=== PATIENT | female | born 1930 | race Caucasian/White ===

== ENCOUNTER → 2019-06-15 | Outpatient (CLI) | payer BC, OTHER | LOC: YHH 13:35 ==

== ENCOUNTER 2019-09-24 14:57 | Inpatient (IN) | payer BC, OTHER ==
--- NOTE | 2019-09-24 15:43 | PDOC ---
History of Present Illness - General Chief Complaint: Chest Pain Stated Complaint: SENT BY PCP/CHEST PAIN Time Seen by Provider: 09/24/19 15:09 - History of Present Illness Initial Comments: Velma Monahan is an 89yo woman who reports a history of SLE who presents stating her PMD (Denis Martins) told her to come to the ED yesterday. She says that she had an appointment in his office, and "he saw how I was." She is unable to say why Dr Mratins wanted to her to come to the hospital. She reports that she "hasn' t been doing well" and has been having difficulty walking around. She also reports that her right shoulder and upper arm hurt today; she has not taken anything for the pain. She reported chest pain in triage but currently denies that she ever had chest pain. Ms Monahan denies any recent fever, chills, nausea/vomiting, difficulty breathing , chest pain, or other symptoms. Past History - Past Medical History Allergies/Adverse Reactions: Allergies Allergy/AdvReac Type Severity Reaction Status Date / Time Penicillins Allergy Verified 09/24/19 16:44 COPD: No - Psycho Social/Smoking Cessation Hx Smoking History: Never smoked Review of Systems - Review of Systems Comments:: General: No fevers, no chills, no weight or appetite change, no malaise HEENT: No changes in vision, no changes in hearing, no congestion, no sore throat CV: No chest pain, no palpitations, no LE edema Pulm: No SOB, no cough, no wheezing GI: No nausea or vomiting, no change in bowel habits, no melena : No frequency, no urgency, no dysuria Musc: No back pain, no joint swelling, no recent injury Skin: No rash, no lesions, no erythema Endo/Rheum: No excessive thirst, no heat/cold intolerance, +h/o SLE Heme: No unusual bruising or bleeding, no swollen glands Neuro: No syncope, no numbness/tingling, no focal weakness Vasc: No claudication Psych: No recent change in mood, no SI or HI *Physical Exam - Vital Signs Last Vital Signs Temp Pulse Resp BP Pulse Ox 97.8 F 92 H 19 154/62 96 09/24/19 15:00 09/24/19 15:00 09/24/19 15:00 09/24/19 15:00 09/24/19 15:00 - Physical Exam General: Comfortable, no acute distress HEENT: PERRL, EOMI, MMM, voice normal, normal neck ROM Cards: RRR, no murmur appreciated Pulm: Comfortable on room air, clear to auscultation bilaterally Abd: Soft, nontender, nondistended Ext: Atraumatic. No LE edema. ROM intact. WWP Skin: Normal color, no rashes or lesions Neuro: A&Ox3, CN grossly intact, normal speech, motor/sensory grossly intact and symmetric Psych: Mood appropriate to situation ED Treatment Course - LABORATORY CBC & Chemistry Diagram: 09/24/19 16:20 09/24/19 16:20 Medical Decision Making - Medical Decision Making 09/24/19 15:42 Velma Monahan is an 89yo woman who reports a history of SLE who presents stating her PMD (Denis Martins) told her to come to the ED yesterday. She reports that she "hasn't been doing well" lately, and her PMD told her to come to the hospital. She reports right shoulder pain currently but denies any chest pain, difficulty breathing, fever/chills or other focal symptoms. - Unclear chief complaint, will attempt to contact Dr Martins for more information - Possible cardiac etiology of generalized weakness and shoulder pain. CBC, CMP , EKG, trop, CXR for initial evaluation - IV acetaminophen for shoulder pain 09/24/19 15:43 - Spoke to Dr Martins. Pt has a history of DM, HTN, CAD s/p stents, PAD s/p angioplasty s/p toe amputations - Seen in the office yesterday for chest pain, lightheadedness - Had full labs yesterday including thyroid, trop. No abnormalities. TFT's normal, BUN/Cr 12/0.83, A1C was 6.7 yesterday. CXR without abnormalities. Echo showed LVH, mitral regurgitation, normal LV function, hypokinetic left inferior wall. Carotid duplex showed plaque bilaterally, left-sided stenosis - Reports pt has difficulty with mobility, is currently living alone. Reports no head or water at her home. Likely needs admit - Home meds include Norvasc 10, ASA81, lantus 30u, trigenta 5, losartan 25, metoprolol 25, crestor 10, lyrica 09/24/19 17:54 - Labs without concerning abnormalities. - Spoke to Dr Balbuena. Will admit to med/surg for additional management. Discussed with Dr Bhavesh Lake PGY2 Discharge - Discharge Information Problems reviewed: Yes Clinical Impression/Diagnosis: Failure to thrive in adult Condition: Stable - Admission Yes - Follow up/Referral - Patient Discharge Instructions - Post Discharge Activity
[2019-09-24] MEDS ORDERED: ACETAMINOPHEN 1000 MG/100 ML VIAL (NON FORMULARY) IVPB ONE (15:53)
[2019-09-24] MEDS ORDERED: ACETAMINOPHEN INJECTION 200 ML IVPB ONE (16:24)
[2019-09-24 17:00] LABS: BASO % 0.4 % (0-2.0); EOS % 1.1 % (0-4.5); HEMATOCRIT 39.7 % (32.4-45.2); HEMOGLOBIN 12.9 GM/dL (10.7-15.3); LYMPH % 18.5 % (8-40); MCH 24.3 pg (25.7-33.7); MCHC 32.5 g/dl (32.0-36.0); MEAN CELL VOLUME 74.8 fl (80-96); MEAN PLT VOLUME 7.7 fl (7.5-11.1); MONO % 7.2 % (3.8-10.2); NEUT % 72.8 % (42.8-82.8); PLATELET COUNT 398 K/MM3 (134-434); RDW 17.9 % (11.6-15.6); WHITE BLOOD COUNT 8.3 K/mm3 (4.0-10.0)
[2019-09-24 17:21] LABS: ALBUMIN 3.5 g/dl (3.4-5.0); BILIRUBIN,TOTAL 0.2 mg/dL (0.2-1); CALCIUM 9.2 mg/dL (8.5-10.1); CREATININE 0.9 mg/dL (0.55-1.3); POTASSIUM 4.1 mmol/L (3.5-5.1); TOT PROT 7.1 g/dl (6.4-8.2)
--- NOTE | 2019-09-24 17:34 | PDOC ---
Attending Attestation - Resident Resident Name: PitoenioFely - ED Attending Attestation I have performed the following: I have examined & evaluated the patient, The case was reviewed & discussed with the resident, I agree w/resident's findings & plan, Exceptions are as noted - HPI HPI: 09/24/19 17:25 89 F with h/o SLE presenting to ED for failure to thrive. Per pt's PMD, Dr. Martins, pt was seen in the office yesterday and was instructed to come to the ED for admission. Pt reportedly lives in an apartment with no heat or water and is unable to take care of herself. - Physicial Exam PE: 09/24/19 17:35 "GENERAL: Awake, alert, and fully oriented, in no acute distress. HEAD: No signs of trauma EYES: PERRLA, EOMI, sclera anicteric, conjunctiva clear ENT: Auricles normal inspection, hearing grossly normal, nares patent, oropharynx clear without exudates. Moist mucosa NECK: Nontender, no stepoffs, Normal ROM, supple, no lymphadenopathy, JVD, or masses LUNGS: Breath sounds equal, clear to auscultation bilaterally. No wheezes, and no crackles HEART: Regular rate and rhythm, normal S1 and S2, no murmurs, rubs or gallops ABDOMEN: Soft, nontender, normoactive bowel sounds. No guarding, no rebound. No masses EXTREMITIES: Normal range of motion, no edema. No clubbing or cyanosis. No cords, erythema, or tenderness NEUROLOGICAL: Cranial nerves II through XII intact. 5/5 strength and sensation in all extremities, Normal speech, normal gait, normal cerebellar function SKIN: Warm, Dry, normal turgor, no rashes or lesions noted. - Medical Decision Making 09/24/19 17:35 89 F sent to ED for unsafe living situation. - Labs - Admit
[2019-09-24] MEDS: DEXTROSE 5%-0.45% SALINE 1,000 ML IV SCH (23:16)
[2019-09-24 23:45] VITALS: BMI 29.2
[2019-09-25] MEDS ORDERED: ACETAMINOPHEN 325 MG TABLET (FP) PO ONE (03:15)
[2019-09-25 09:46] LABS: BASO % 0.6 % (0-2.0); EOS % 3.7 % (0-4.5); HEMATOCRIT 36.4 % (32.4-45.2); HEMOGLOBIN 11.8 GM/dL (10.7-15.3); LYMPH % 31.3 % (8-40); MCH 24.5 pg (25.7-33.7); MCHC 32.4 g/dl (32.0-36.0); MEAN CELL VOLUME 75.7 fl (80-96); NEUT % 54.4 % (42.8-82.8); PLATELET COUNT 338 K/MM3 (134-434); RBC 4.81 M/mm3 (3.60-5.2); RDW 18.1 % (11.6-15.6); WHITE BLOOD COUNT 6.9 K/mm3 (4.0-10.0)
[2019-09-25 09:52] LABS: ALBUMIN 3.1 g/dl (3.4-5.0); BILIRUBIN,TOTAL 0.2 mg/dL (0.2-1); BLOOD UREA NITROGEN 23.3 mg/dL (7-18); CALCIUM 8.6 mg/dL (8.5-10.1); POTASSIUM 4.1 mmol/L (3.5-5.1); TOT PROT 6.2 g/dl (6.4-8.2)
[2019-09-25] MEDS: LOSARTAN POTASSIUM 25 MG TABLET PO SCH (10:23)
[2019-09-25] MEDS: HEPARIN NA (PORCINE) 5,000 UNITS/ML 1ML VIAL SQ SCH ×2 (10:23→21:28)
[2019-09-25] MEDS: ASPIRIN 81 MG CHEWABLE TABLETS PO SCH (10:23)
[2019-09-25] MEDS: amLODIPine BESYLATE 10 MG TABLET (FP) PO SCH (10:23)
[2019-09-25] MEDS: PREGABALIN 25 MG CAPSULE PO SCH (10:23)
--- NOTE | 2019-09-25 12:48 | HP ---
Admitting History and Physical - Smoking History Smoking history: Never smoked - Alcohol/Substance Use Hx Alcohol Use: No Home Medications - Allergies Allergies/Adverse Reactions: Allergies Allergy/AdvReac Type Severity Reaction Status Date / Time Penicillins Allergy Verified 09/24/19 16:44 - Home Medications Home Medications: Ambulatory Orders Amlodipine Besylate [Norvasc -] 10 mg PO DAILY 09/24/19 Aspirin [ASA -] 81 mg PO DAILY 09/24/19 Insulin Glargine,Hum.rec.anlog [Lantus] 30 unit SQ DAILY 09/24/19 Linagliptin [Tradjenta] 5 mg PO DAILY 09/24/19 Losartan Potassium 25 mg PO DAILY 09/24/19 Pregabalin [Lyrica] 25 mg PO DAILY 09/24/19 Rosuvastatin Calcium [Crestor] 10 mg PO HS 09/24/19 Physical Examination Vital Signs: Vital Signs Temperature 97.4 F L 09/25/19 05:52 Pulse Rate 76 09/25/19 05:52 Respiratory Rate 18 09/25/19 05:52 Blood Pressure 146/60 09/25/19 05:52 O2 Sat by Pulse Oximetry (%) 95 09/24/19 21:00 Labs: CBC, BMP 09/25/19 08:10 09/25/19 08:10
[2019-09-25] MEDS: ACETAMINOPHEN 325 MG TABLET (FP) PO PRN (13:44)
[2019-09-25] MEDS: DEXTROSE 5%-0.45% SALINE 1,000 ML IV SCH (17:44)
[2019-09-25] MEDS: ROSUVASTATIN CA 10 MG TABLET (FP) PO SCH (21:28)
[2019-09-25] MEDS: INSULIN (LEVEMIR) 100 UNITS/ML UNITS SQ SCH (21:28)
--- NOTE | 2019-09-25 23:19 | EKG ---
Test Reason : Blood Pressure : / mmHG Vent. Rate : 090 BPM Atrial Rate : 090 BPM P-R Int : 168 ms QRS Dur : 138 ms QT Int : 442 ms P-R-T Axes : 057 109 026 degrees QTc Int : 540 ms NORMAL SINUS RHYTHM POSSIBLE LEFT ATRIAL ENLARGEMENT RIGHT BUNDLE BRANCH BLOCK ABNORMAL ECG WHEN COMPARED WITH ECG OF 03-JUL-2010 02:07, VENT. RATE HAS INCREASED BY 32 BPM Confirmed by RICHI MONTOYA, BARNEY ([id number]) on 09/25/2019 11:18:51 PM Referred By: Confirmed By:BARNEY STODDARD MD
[2019-09-26 00:57] LABS: EPI CELLS 2.7 /HPF (0-5/HPF); HYALINE CASTS 1 /lpf (0-8); PH,URINE 5.5 (5.0-8.0); URINE APPEARANCE CLOUDY; URINE BACTERIA >9000 /hpf (NEGATIVE); URINE BILIRUBIN NEGATIVE (NEGATIVE); URINE COLOR YELLOW; URINE GLUCOSE (UA) NEGATIVE (NEGATIVE); URINE KETONE NEGATIVE (NEGATIVE); URINE LEUK ESTERASE NEGATIVE (NEGATIVE); URINE NITRITE POSITIVE (NEGATIVE); URINE PROTEIN 1+ (NEGATIVE); URINE RBC 2 /hpf (0-4); URINE UROBILINOGEN 0.2 mg/dL (0.2-1.0); URINE WBC 4 /hpf (0-5)
[2019-09-26] MEDS: amLODIPine BESYLATE 10 MG TABLET (FP) PO SCH (09:50)
[2019-09-26] MEDS: PREGABALIN 25 MG CAPSULE PO SCH (09:51)
[2019-09-26] MEDS: HEPARIN NA (PORCINE) 5,000 UNITS/ML 1ML VIAL SQ SCH ×2 (09:51→21:29)
[2019-09-26] MEDS: LOSARTAN POTASSIUM 25 MG TABLET PO SCH (09:51)
[2019-09-26] MEDS: ASPIRIN 81 MG CHEWABLE TABLETS PO SCH (09:51)
[2019-09-26] MEDS: ACETAMINOPHEN 325 MG TABLET (FP) PO PRN (14:54)
--- NOTE | 2019-09-26 18:36 | PN ---
Progress Note, Physician History of Present Illness: pt complains of cough - Current Medication List Current Medications: Active Medications Acetaminophen (Tylenol -) 650 mg PO Q6H PRN PRN Reason: PAIN 1-5 Last Admin: 09/26/19 14:54 Dose: 650 mg Amlodipine Besylate (Norvasc -) 10 mg PO DAILY [facility] Last Admin: 09/26/19 09:50 Dose: 10 mg Aspirin (Asa -) 81 mg PO DAILY [facility] Last Admin: 09/26/19 09:51 Dose: 81 mg Guaifenesin (Robitussin -) 5 ml PO Q6H PRN PRN Reason: COUGH Heparin Sodium (Porcine) (Heparin -) 5,000 unit SQ BID [facility] Last Admin: 09/26/19 09:51 Dose: 5,000 unit Insulin Detemir (Levemir Vial) 20 units SQ HS [facility] Last Admin: 09/25/19 21:28 Dose: 20 units Losartan Potassium (Cozaar -) 25 mg PO DAILY [facility] Last Admin: 09/26/19 09:51 Dose: 25 mg Nystatin (Nystop Powder -) 1 applic TP BID [facility] Pramipexole Dihydrochloride (Mirapex -) 0.125 mg PO HS [facility] Pregabalin (Lyrica -) 25 mg PO DAILY [facility] Last Admin: 09/26/19 09:51 Dose: 25 mg Rosuvastatin Calcium (Crestor -) 10 mg PO HS [facility] Last Admin: 09/25/19 21:28 Dose: 10 mg - Objective Vital Signs: Vital Signs Temperature 97.7 F 09/26/19 14:31 Pulse Rate 85 09/26/19 14:31 Respiratory Rate 18 09/26/19 09:00 Blood Pressure 149/57 L 09/26/19 14:31 O2 Sat by Pulse Oximetry (%) 93 L 09/26/19 09:00 Cardiovascular: Yes: WNL, Regular Rate and Rhythm Respiratory: Yes: WNL, Regular, CTA Bilaterally Gastrointestinal: Yes: WNL, Normal Bowel Sounds, Soft Labs: CBC, BMP 09/25/19 08:10 09/25/19 08:10 Problem List - Problems (1) Cough Assessment/Plan: Cont levaquin Code(s): R05 - COUGH (2) Failure to thrive in adult Assessment/Plan: DC planning to STR Physical therapy Code(s): R62.7 - ADULT FAILURE TO THRIVE (3) HTN (hypertension) Assessment/Plan: BP stable Cont losartan/norvasc/asa Code(s): I10 - ESSENTIAL (PRIMARY) HYPERTENSION (4) HLD (hyperlipidemia) Assessment/Plan: Cont crestor Code(s): E78.5 - HYPERLIPIDEMIA, UNSPECIFIED (5) Peripheral neuropathic pain Assessment/Plan: Cont lyrica Code(s): M79.2 - NEURALGIA AND NEURITIS, UNSPECIFIED (6) Diabetes Assessment/Plan: Cont levemir Code(s): E11.9 - TYPE 2 DIABETES 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
[2019-09-26] MEDS: guaiFENesin 200 MG/10 ML 10 ML UNIT-DOSE CUPS PO PRN (20:20)
[2019-09-26] MEDS: NYSTATIN POWDER 100,000 UNITS/GM - 15 GM TOPICAL POWDER TP SCH (21:29)
[2019-09-26] MEDS: INSULIN (LEVEMIR) 100 UNITS/ML UNITS SQ SCH (21:29)
[2019-09-26] MEDS: PRAMIPEXOLE DIHYDROCHLORIDE 0.125 MG TABLET PO SCH (21:31)
[2019-09-26] MEDS: ROSUVASTATIN CA 10 MG TABLET (FP) PO SCH (21:31)
[2019-09-27] MEDS: HEPARIN NA (PORCINE) 5,000 UNITS/ML 1ML VIAL SQ SCH ×2 (09:51→21:17)
[2019-09-27] MEDS: ASPIRIN 81 MG CHEWABLE TABLETS PO SCH (09:52)
[2019-09-27] MEDS: LOSARTAN POTASSIUM 25 MG TABLET PO SCH (09:52)
[2019-09-27] MEDS: amLODIPine BESYLATE 10 MG TABLET (FP) PO SCH (09:52)
[2019-09-27] MEDS: PREGABALIN 25 MG CAPSULE PO SCH (09:52)
[2019-09-27] MEDS: NYSTATIN POWDER 100,000 UNITS/GM - 15 GM TOPICAL POWDER TP SCH ×2 (09:52→21:21)
--- NOTE | 2019-09-27 13:41 | CON.PULM ---
Consult Consult Specialty:: PULM/CCM Referred by:: [email or web address] Reason for Consultation:: Cough - History of Present Illness Chief Complaint: Cough History of Present Illness: 89 F, known SLE. Apparently admitted via the ED for failure to thrive. She reports no heat or water and is unable to take care of herself. Reports a dry cough for the past several days. No travel history or sick contacts. No fever or chills. No significant smoking history. No previous history of obstructive airway disease. She does report chronic rhinitis and post nasal drip. She does get occasional seasonal allergies. There is no history that would be consistent with OSAS. CXR: No acute process - - History Source History Provided By: Patient Limitations to Obtaining History: No Limitations - Past Medical History Pulmonary: Yes: Bronchitis. No: Asthma, Cancer, COPD, O2 Dependent, Pneumonia, Previously Intubated, Pulmonary Embolus, Pulmonary Fibrosis, Sleep Apnea - Alcohol/Substance Use Hx Alcohol Use: No - Smoking History Smoking history: Never smoked Home Medications - Allergies Allergies/Adverse Reactions: Allergies Allergy/AdvReac Type Severity Reaction Status Date / Time Penicillins Allergy Verified 09/24/19 16:44 - Home Medications Home Medications: Ambulatory Orders Amlodipine Besylate [Norvasc -] 10 mg PO DAILY 09/24/19 Aspirin [ASA -] 81 mg PO DAILY 09/24/19 Insulin Glargine,Hum.rec.anlog [Lantus] 30 unit SQ DAILY 09/24/19 Linagliptin [Tradjenta] 5 mg PO DAILY 09/24/19 Losartan Potassium 25 mg PO DAILY 09/24/19 Pregabalin [Lyrica] 25 mg PO DAILY 09/24/19 Rosuvastatin Calcium [Crestor] 10 mg PO HS 09/24/19 Review of Systems - Review of Systems Constitutional: reports: Malaise. denies: Chills, Fever, Night Sweats, Unintentional Wgt. Loss, Weakness Eyes: reports: No Symptoms HENT: reports: Nasal Congestion, Other (post nasal drip) Neck: reports: No Symptoms Cardiovascular: denies: Chest Pain, Edema, Palpitations, Shortness of Breath Respiratory: reports: Cough. denies: Hemoptysis, Orthopnea, PND, Snoring, SOB, SOB on Exertion, Wheezing Gastrointestinal: reports: No Symptoms Genitourinary: reports: No Symptoms Breasts: reports: No Symptoms Reported Musculoskeletal: reports: No Symptoms Integumentary: reports: No Symptoms Neurological: reports: No Symptoms Endocrine: reports: No Symptoms Hematology/Lymphatic: reports: No Symptoms Psychiatric: reports: No Symptoms Physical Exam Vital Sings: Vital Signs Temperature 98.4 F 09/27/19 07:52 Pulse Rate 73 09/27/19 07:52 Respiratory Rate 14 09/27/19 07:52 Blood Pressure 139/62 09/27/19 07:52 O2 Sat by Pulse Oximetry (%) 95 09/27/19 12:16 Constitutional: Yes: No Distress, Calm Eyes: Yes: Conjunctiva Clear, EOM Intact HENT: Yes: Atraumatic, Normocephalic Neck: Yes: Supple, Trachea Midline Cardiovascular: Yes: Regular Rate and Rhythm Respiratory: Yes: CTA Bilaterally, Cough, On Nasal O2. No: Accessory Muscle Use , Rales, Rhonchi, SOB, SOB on Exertion, Stridor, Tachypnea, Wheezes ...Inspection: Yes: WNL ...Clubbing: No Gastrointestinal: Yes: Normal Bowel Sounds, Soft Renal/: Yes: WNL Musculoskeletal: Yes: WNL Extremities: Yes: WNL Edema: No Peripheral Pulses WNL: Yes Integumentary: Yes: WNL Neurological: Yes: WNL, Alert, Oriented ...Motor Strength: WNL Psychiatric: Yes: WNL, Alert, Oriented Labs: CBC, BMP 09/25/19 08:10 09/25/19 08:10 Imaging - Results Chest X-ray: Report Reviewed, Image Reviewed Problem List - Problems (1) Cough Code(s): R05 - COUGH (2) Diabetes Code(s): E11.9 - TYPE 2 DIABETES 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 (3) Failure to thrive in adult Code(s): R62.7 - ADULT FAILURE TO THRIVE (4) HLD (hyperlipidemia) Code(s): E78.5 - HYPERLIPIDEMIA, UNSPECIFIED (5) HTN (hypertension) Code(s): I10 - ESSENTIAL (PRIMARY) HYPERTENSION (6) Peripheral neuropathic pain Code(s): M79.2 - NEURALGIA AND NEURITIS, UNSPECIFIED (7) Post-nasal drip Code(s): R09.82 - POSTNASAL DRIP Assessment/Plan IMP: Suspect resolving URI with subacute cough due to PND PLAN: Fluticasone nasal spray Nasal saline Noted Levaquin O2 as needed PFTs as an outpatient when stable No smoking counseled Will follow Thank you. Dr Lewis
[2019-09-27] MEDS ORDERED: SODIUM CHLORIDE NASAL SPRAY 44 ML BOTTLE NS PRN (13:49)
[2019-09-27] MEDS ORDERED: PT OWN MED DRAWER 7, Y5N ONE (14:38)
[2019-09-27] MEDS: FLUTICASONE PROP 0.05% 16 GM NASAL SPRAY NS SCH (14:45)
[2019-09-27] MEDS: ROSUVASTATIN CA 10 MG TABLET (FP) PO SCH (21:18)
[2019-09-27] MEDS: PRAMIPEXOLE DIHYDROCHLORIDE 0.125 MG TABLET PO SCH (21:18)
[2019-09-27] MEDS: INSULIN (LEVEMIR) 100 UNITS/ML UNITS SQ SCH (21:18)
[2019-09-27] MEDS: ACETAMINOPHEN 325 MG TABLET (FP) PO PRN (21:28)
--- NOTE | 2019-09-27 22:06 | PN ---
Progress Note, Physician History of Present Illness: pt complains of cough Pt had episode of O2 destauration to 88% - Current Medication List Current Medications: Active Medications Acetaminophen (Tylenol -) 650 mg PO Q6H PRN PRN Reason: PAIN 1-5 Last Admin: 09/27/19 21:28 Dose: 650 mg Amlodipine Besylate (Norvasc -) 10 mg PO DAILY [facility] Last Admin: 09/27/19 09:52 Dose: 10 mg Aspirin (Asa -) 81 mg PO DAILY [facility] Last Admin: 09/27/19 09:52 Dose: 81 mg Fluticasone Propionate (Flonase -) 2 spray NS DAILY [facility] Last Admin: 09/27/19 14:45 Dose: 2 spray Guaifenesin (Robitussin -) 5 ml PO Q6H PRN PRN Reason: COUGH Last Admin: 09/26/19 20:20 Dose: 5 ml Heparin Sodium (Porcine) (Heparin -) 5,000 unit SQ BID [facility] Last Admin: 09/27/19 21:17 Dose: 5,000 unit Insulin Detemir (Levemir Vial) 20 units SQ HS [facility] Last Admin: 09/27/19 21:18 Dose: 20 units Levofloxacin (Levaquin -) 500 mg PO DAILY [facility] Last Admin: 09/27/19 09:52 Dose: 500 mg Losartan Potassium (Cozaar -) 25 mg PO DAILY [facility] Last Admin: 09/27/19 09:52 Dose: 25 mg Nystatin (Nystop Powder -) 1 applic TP BID [facility] Last Admin: 09/27/19 21:21 Dose: 1 applic Pramipexole Dihydrochloride (Mirapex -) 0.125 mg PO HS [facility] Last Admin: 09/27/19 21:18 Dose: 0.125 mg Pregabalin (Lyrica -) 25 mg PO DAILY [facility] Last Admin: 09/27/19 09:52 Dose: 25 mg Rosuvastatin Calcium (Crestor -) 10 mg PO HS [facility] Last Admin: 09/27/19 21:18 Dose: 10 mg Sodium Chloride ([place] Nasal [place] -) 2 spray NS TID PRN PRN Reason: NASAL CONGESTION - Objective Vital Signs: Vital Signs Temperature 97.3 F L 09/27/19 20:03 Pulse Rate 78 09/27/19 20:03 Respiratory Rate 18 09/27/19 21:00 Blood Pressure 157/65 12/09/19 20:03 O2 Sat by Pulse Oximetry (%) 96 09/27/19 21:00 Neck: Yes: WNL, Supple Cardiovascular: Yes: WNL, Regular Rate and Rhythm Respiratory: Yes: WNL, Regular, CTA Bilaterally Gastrointestinal: Yes: WNL, Normal Bowel Sounds, Soft, Abdomen, Obese Edema: No Labs: CBC, BMP 09/25/19 08:10 09/25/19 08:10 Problem List - Problems (1) Cough Assessment/Plan: Cont levaquin CXR did not show any acute pathology Pulmonary consult noted DC to STR in am Code(s): R05 - COUGH (2) Failure to thrive in adult Assessment/Plan: DC planning to STR Physical therapy Code(s): R62.7 - ADULT FAILURE TO THRIVE (3) HTN (hypertension) Assessment/Plan: BP stable Cont losartan/norvasc/asa Code(s): I10 - ESSENTIAL (PRIMARY) HYPERTENSION (4) HLD (hyperlipidemia) Assessment/Plan: Cont crestor Code(s): E78.5 - HYPERLIPIDEMIA, UNSPECIFIED (5) Peripheral neuropathic pain Assessment/Plan: Cont lyrica Code(s): M79.2 - NEURALGIA AND NEURITIS, UNSPECIFIED (6) Diabetes Assessment/Plan: Cont levemir Code(s): E11.9 - TYPE 2 DIABETES 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
[2019-09-28] MEDS ORDERED: PT OWN MED DRAWER 7, Y5N ONE (09:51)
[2019-09-28] MEDS: FLUTICASONE PROP 0.05% 16 GM NASAL SPRAY NS SCH (09:56)
[2019-09-28] MEDS: HEPARIN NA (PORCINE) 5,000 UNITS/ML 1ML VIAL SQ SCH ×2 (09:57→21:08)
[2019-09-28] MEDS: ASPIRIN 81 MG CHEWABLE TABLETS PO SCH (09:57)
[2019-09-28] MEDS: LOSARTAN POTASSIUM 25 MG TABLET PO SCH (09:57)
[2019-09-28] MEDS: amLODIPine BESYLATE 10 MG TABLET (FP) PO SCH (09:57)
[2019-09-28] MEDS: NYSTATIN POWDER 100,000 UNITS/GM - 15 GM TOPICAL POWDER TP SCH ×2 (10:00→21:12)
[2019-09-28] MEDS: PREGABALIN 25 MG CAPSULE PO SCH (10:32)
--- NOTE | 2019-09-28 11:03 | PN ---
Progress Note (short form) - Note Progress Note: OOB to chair. Comfortable on RA. [place] some nausea this AM. Still with nasal congestion, cough with clear sputum. Intake & Output 09/25/19 09/26/19 09/27/19 09/28/19 23:59 23:59 23:59 23:59 Intake Total 2650 2680 1190 270 Balance 2650 2680 1190 270 Weight 160 lb Last Vital Signs Temp Pulse Resp BP Pulse Ox 98.2 F 77 18 146/56 L 96 09/28/19 05:55 09/28/19 10:00 09/28/19 05:55 09/28/19 10:00 09/27/19 21:00 Active Medications Acetaminophen (Tylenol -) 650 mg PO Q6H PRN PRN Reason: PAIN 1-5 Last Admin: 09/27/19 21:28 Dose: 650 mg Amlodipine Besylate (Norvasc -) 10 mg PO DAILY [facility] Last Admin: 09/28/19 09:57 Dose: 10 mg Aspirin (Asa -) 81 mg PO DAILY [facility] Last Admin: 09/28/19 09:57 Dose: 81 mg Fluticasone Propionate (Flonase -) 2 spray NS DAILY [facility] Last Admin: 09/28/19 09:56 Dose: 2 spray Guaifenesin (Robitussin -) 5 ml PO Q6H PRN PRN Reason: COUGH Last Admin: 09/26/19 20:20 Dose: 5 ml Heparin Sodium (Porcine) (Heparin -) 5,000 unit SQ BID [facility] Last Admin: 09/28/19 09:57 Dose: 5,000 unit Insulin Detemir (Levemir Vial) 20 units SQ HS [facility] Last Admin: 09/27/19 21:18 Dose: 20 units Levofloxacin (Levaquin -) 500 mg PO DAILY [facility] Last Admin: 09/28/19 09:57 Dose: 500 mg Losartan Potassium (Cozaar -) 25 mg PO DAILY [facility] Last Admin: 09/28/19 09:57 Dose: 25 mg Nystatin (Nystop Powder -) 1 applic TP BID [facility] Last Admin: 09/28/19 10:00 Dose: 1 applic Pramipexole Dihydrochloride (Mirapex -) 0.125 mg PO HS [facility] Last Admin: 09/27/19 21:18 Dose: 0.125 mg Pregabalin (Lyrica -) 25 mg PO DAILY [facility] Last Admin: 09/28/19 10:32 Dose: 25 mg Rosuvastatin Calcium (Crestor -) 10 mg PO HS [facility] Last Admin: 09/27/19 21:18 Dose: 10 mg Sodium Chloride ([place] Nasal [place] -) 2 spray NS TID PRN PRN Reason: NASAL CONGESTION Constitutional: Yes: No Distress, Mildly anxious Eyes: Yes: Conjunctiva Clear, EOM Intact HENT: Yes: Atraumatic, Normocephalic Neck: Yes: Supple, Trachea Midline Cardiovascular: Yes: Regular Rate and Rhythm Respiratory: Yes: CTA Bilaterally, Cough, On Nasal O2. No: Accessory Muscle Use , Rales, Rhonchi, SOB, SOB on Exertion, Stridor, Tachypnea, Wheezes ...Inspection: Yes: WNL ...Clubbing: No Gastrointestinal: Yes: Normal Bowel Sounds, Soft Renal/: Yes: WNL Musculoskeletal: Yes: WNL Extremities: Yes: WNL Edema: No Peripheral Pulses WNL: Yes Integumentary: Yes: WNL Neurological: Yes: WNL, Alert, Oriented ...Motor Strength: WNL Psychiatric: Yes: WNL, Alert, Oriented Labs: Laboratory Results - last 24 hr 09/27/19 09/28/19 21:14 05:21 POC Glucometer 147 147 Problem List - Problems (1) Cough Code(s): R05 - COUGH (2) Diabetes Code(s): E11.9 - TYPE 2 DIABETES 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 (3) Failure to thrive in adult Code(s): R62.7 - ADULT FAILURE TO THRIVE (4) HLD (hyperlipidemia) Code(s): E78.5 - HYPERLIPIDEMIA, UNSPECIFIED (5) HTN (hypertension) Code(s): I10 - ESSENTIAL (PRIMARY) HYPERTENSION (6) Peripheral neuropathic pain Code(s): M79.2 - NEURALGIA AND NEURITIS, UNSPECIFIED (7) Post-nasal drip Code(s): R09.82 - POSTNASAL DRIP Assessment/Plan IMP: Suspect resolving URI with subacute cough due to PND PLAN: Fluticasone nasal spray Nasal saline Noted Levaquin O2 as needed PFTs as an outpatient when stable No smoking counseled No Pulmonary contraindication for DC planning Dr Lewis Problem List - Problems (1) Cough Code(s): R05 - COUGH (2) Diabetes Code(s): E11.9 - TYPE 2 DIABETES 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 (3) Failure to thrive in adult Code(s): R62.7 - ADULT FAILURE TO THRIVE (4) HLD (hyperlipidemia) Code(s): E78.5 - HYPERLIPIDEMIA, UNSPECIFIED (5) HTN (hypertension) Code(s): I10 - ESSENTIAL (PRIMARY) HYPERTENSION (6) Peripheral neuropathic pain Code(s): M79.2 - NEURALGIA AND NEURITIS, UNSPECIFIED (7) Post-nasal drip Code(s): R09.82 - POSTNASAL DRIP
[2019-09-28] MEDS: ACETAMINOPHEN 325 MG TABLET (FP) PO PRN (13:36)
[2019-09-28] MEDS: ROSUVASTATIN CA 10 MG TABLET (FP) PO SCH (21:08)
[2019-09-28] MEDS: INSULIN (LEVEMIR) 100 UNITS/ML UNITS SQ SCH (21:08)
[2019-09-28] MEDS: PRAMIPEXOLE DIHYDROCHLORIDE 0.125 MG TABLET PO SCH (21:08)
--- NOTE | 2019-09-28 23:40 | PN ---
Progress Note, Physician - Current Medication List Current Medications: Active Medications Acetaminophen (Tylenol -) 650 mg PO Q6H PRN PRN Reason: PAIN 1-5 Last Admin: 09/28/19 13:36 Dose: 650 mg Amlodipine Besylate (Norvasc -) 10 mg PO DAILY [facility] Last Admin: 09/28/19 09:57 Dose: 10 mg Aspirin (Asa -) 81 mg PO DAILY [facility] Last Admin: 09/28/19 09:57 Dose: 81 mg Fluticasone Propionate (Flonase -) 2 spray NS DAILY [facility] Last Admin: 09/28/19 09:56 Dose: 2 spray Guaifenesin (Robitussin -) 5 ml PO Q6H PRN PRN Reason: COUGH Last Admin: 09/26/19 20:20 Dose: 5 ml Heparin Sodium (Porcine) (Heparin -) 5,000 unit SQ BID [facility] Last Admin: 09/28/19 21:08 Dose: 5,000 unit Insulin Detemir (Levemir Vial) 20 units SQ HS [facility] Last Admin: 09/28/19 21:08 Dose: 20 units Levofloxacin (Levaquin -) 500 mg PO DAILY [facility] Last Admin: 09/28/19 09:57 Dose: 500 mg Losartan Potassium (Cozaar -) 25 mg PO DAILY [facility] Last Admin: 09/28/19 09:57 Dose: 25 mg Nystatin (Nystop Powder -) 1 applic TP BID [facility] Last Admin: 09/28/19 21:12 Dose: 1 applic Pramipexole Dihydrochloride (Mirapex -) 0.125 mg PO HS [facility] Last Admin: 09/28/19 21:08 Dose: 0.125 mg Pregabalin (Lyrica -) 25 mg PO DAILY [facility] Last Admin: 09/28/19 10:32 Dose: 25 mg Rosuvastatin Calcium (Crestor -) 10 mg PO HS [facility] Last Admin: 09/28/19 21:08 Dose: 10 mg Sodium Chloride ([place] Nasal [place] -) 2 spray NS TID PRN PRN Reason: NASAL CONGESTION - Objective Vital Signs: Vital Signs Temperature 97.9 F 09/28/19 23:35 Pulse Rate 70 09/28/19 23:35 Respiratory Rate 19 09/28/19 23:35 Blood Pressure 153/69 09/28/19 23:35 O2 Sat by Pulse Oximetry (%) 95 09/28/19 20:42 Labs: CBC, BMP 09/25/19 08:10 09/25/19 08:10 Problem List - Problems (1) Cough Code(s): R05 - COUGH (2) Failure to thrive in adult Code(s): R62.7 - ADULT FAILURE TO THRIVE (3) HTN (hypertension) Code(s): I10 - ESSENTIAL (PRIMARY) HYPERTENSION (4) HLD (hyperlipidemia) Code(s): E78.5 - HYPERLIPIDEMIA, UNSPECIFIED (5) Peripheral neuropathic pain Code(s): M79.2 - NEURALGIA AND NEURITIS, UNSPECIFIED (6) Diabetes Code(s): E11.9 - TYPE 2 DIABETES 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
[2019-09-29] MEDS: guaiFENesin 200 MG/10 ML 10 ML UNIT-DOSE CUPS PO PRN ×2 (00:36→22:24)
[2019-09-29] MEDS: PREGABALIN 25 MG CAPSULE PO SCH (11:06)
[2019-09-29] MEDS: ASPIRIN 81 MG CHEWABLE TABLETS PO SCH (11:06)
[2019-09-29] MEDS: LOSARTAN POTASSIUM 25 MG TABLET PO SCH (11:06)
[2019-09-29] MEDS: amLODIPine BESYLATE 10 MG TABLET (FP) PO SCH (11:07)
[2019-09-29] MEDS: HEPARIN NA (PORCINE) 5,000 UNITS/ML 1ML VIAL SQ SCH ×2 (11:07→22:15)
[2019-09-29] MEDS: NYSTATIN POWDER 100,000 UNITS/GM - 15 GM TOPICAL POWDER TP SCH ×2 (11:16→22:15)
[2019-09-29] MEDS: FLUTICASONE PROP 0.05% 16 GM NASAL SPRAY NS SCH (11:17)
--- NOTE | 2019-09-29 15:21 | PN ---
Progress Note, Physician History of Present Illness: PULMONARY ALERT,COMFORTABLE,-SOB,+ COUGH - Current Medication List Current Medications: Active Medications Acetaminophen (Tylenol -) 650 mg PO Q6H PRN PRN Reason: PAIN 1-5 Last Admin: 09/28/19 13:36 Dose: 650 mg Amlodipine Besylate (Norvasc -) 10 mg PO DAILY [facility] Last Admin: 09/29/19 11:07 Dose: 10 mg Aspirin (Asa -) 81 mg PO DAILY [facility] Last Admin: 09/29/19 11:06 Dose: 81 mg Fluticasone Propionate (Flonase -) 2 spray NS DAILY [facility] Last Admin: 09/29/19 11:17 Dose: 2 spray Guaifenesin (Robitussin -) 5 ml PO Q6H PRN PRN Reason: COUGH Last Admin: 09/29/19 00:36 Dose: 5 ml Heparin Sodium (Porcine) (Heparin -) 5,000 unit SQ BID [facility] Last Admin: 09/29/19 11:07 Dose: 5,000 unit Insulin Detemir (Levemir Vial) 20 units SQ HS [facility] Last Admin: 09/28/19 21:08 Dose: 20 units Levofloxacin (Levaquin -) 500 mg PO DAILY [facility] Last Admin: 09/29/19 11:06 Dose: 500 mg Losartan Potassium (Cozaar -) 25 mg PO DAILY [facility] Last Admin: 09/29/19 11:06 Dose: 25 mg Nystatin (Nystop Powder -) 1 applic TP BID [facility] Last Admin: 09/29/19 11:16 Dose: 1 applic Pramipexole Dihydrochloride (Mirapex -) 0.125 mg PO HS [facility] Last Admin: 09/28/19 21:08 Dose: 0.125 mg Pregabalin (Lyrica -) 25 mg PO DAILY [facility] Last Admin: 09/29/19 11:06 Dose: 25 mg Rosuvastatin Calcium (Crestor -) 10 mg PO HS [facility] Last Admin: 09/28/19 21:08 Dose: 10 mg Sodium Chloride ([place] Nasal [place] -) 2 spray NS TID PRN PRN Reason: NASAL CONGESTION - Objective Vital Signs: Vital Signs Temperature 97.8 F 09/29/19 14:01 Pulse Rate 86 09/29/19 14:01 Respiratory Rate 20 09/29/19 14:01 Blood Pressure 114/49 L 09/29/19 14:01 O2 Sat by Pulse Oximetry (%) 95 09/29/19 09:00 Constitutional: Yes: Well Nourished, Calm Eyes: Yes: WNL HENT: Yes: WNL, Other Cardiovascular: Yes: Regular Rate and Rhythm, S1, S2 Respiratory: Yes: Diminished Gastrointestinal: Yes: Normal Bowel Sounds, Soft Extremities: Yes: WNL Edema: No Labs: Assessment/Plan Problem List - Problems (1) Cough Code(s): R05 - COUGH (2) Diabetes Code(s): E11.9 - TYPE 2 DIABETES 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 (3) Failure to thrive in adult Code(s): R62.7 - ADULT FAILURE TO THRIVE (4) HLD (hyperlipidemia) Code(s): E78.5 - HYPERLIPIDEMIA, UNSPECIFIED (5) HTN (hypertension) Code(s): I10 - ESSENTIAL (PRIMARY) HYPERTENSION (6) Peripheral neuropathic pain Code(s): M79.2 - NEURALGIA AND NEURITIS, UNSPECIFIED (7) Post-nasal drip Code(s): R09.82 - POSTNASAL DRIP Assessment/Plan IMP: Suspect resolving URI with subacute cough due to PND PLAN: Fluticasone nasal spray Nasal saline Levaquin O2 as needed PFTs as an outpatient when stable No smoking counseled Cough luis carlos BROWN Problem List - Problems (1) Cough Code(s): R05 - COUGH (2) Diabetes Code(s): E11.9 - TYPE 2 DIABETES 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 (3) Failure to thrive in adult Code(s): R62.7 - ADULT FAILURE TO THRIVE (4) HLD (hyperlipidemia) Code(s): E78.5 - HYPERLIPIDEMIA, UNSPECIFIED (5) HTN (hypertension) Code(s): I10 - ESSENTIAL (PRIMARY) HYPERTENSION (6) Peripheral neuropathic pain Code(s): M79.2 - NEURALGIA AND NEURITIS, UNSPECIFIED (7) Post-nasal drip Code(s): R09.82 - POSTNASAL DRIP
[2019-09-29] MEDS: INSULIN (LEVEMIR) 100 UNITS/ML UNITS SQ SCH (22:14)
[2019-09-29] MEDS: PRAMIPEXOLE DIHYDROCHLORIDE 0.125 MG TABLET PO SCH (22:14)
[2019-09-29] MEDS: ROSUVASTATIN CA 10 MG TABLET (FP) PO SCH (22:14)
--- NOTE | 2019-09-29 23:16 | PN ---
Progress Note, Physician - Current Medication List Current Medications: Active Medications Acetaminophen (Tylenol -) 650 mg PO Q6H PRN PRN Reason: PAIN 1-5 Last Admin: 09/28/19 13:36 Dose: 650 mg Amlodipine Besylate (Norvasc -) 10 mg PO DAILY [facility] Last Admin: 09/29/19 11:07 Dose: 10 mg Aspirin (Asa -) 81 mg PO DAILY [facility] Last Admin: 09/29/19 11:06 Dose: 81 mg Fluticasone Propionate (Flonase -) 2 spray NS DAILY [facility] Last Admin: 09/29/19 11:17 Dose: 2 spray Guaifenesin (Robitussin -) 5 ml PO Q6H PRN PRN Reason: COUGH Last Admin: 09/29/19 22:24 Dose: 5 ml Heparin Sodium (Porcine) (Heparin -) 5,000 unit SQ BID [facility] Last Admin: 09/29/19 22:15 Dose: 5,000 unit Insulin Detemir (Levemir Vial) 20 units SQ HS [facility] Last Admin: 09/29/19 22:14 Dose: 20 units Levofloxacin (Levaquin -) 500 mg PO DAILY [facility] Last Admin: 09/29/19 11:06 Dose: 500 mg Losartan Potassium (Cozaar -) 25 mg PO DAILY [facility] Last Admin: 09/29/19 11:06 Dose: 25 mg Nystatin (Nystop Powder -) 1 applic TP BID [facility] Last Admin: 09/29/19 22:15 Dose: 1 applic Pramipexole Dihydrochloride (Mirapex -) 0.125 mg PO HS [facility] Last Admin: 09/29/19 22:14 Dose: 0.125 mg Pregabalin (Lyrica -) 25 mg PO DAILY [facility] Last Admin: 09/29/19 11:06 Dose: 25 mg Rosuvastatin Calcium (Crestor -) 10 mg PO HS [facility] Last Admin: 09/29/19 22:14 Dose: 10 mg Sodium Chloride ([place] Nasal [place] -) 2 spray NS TID PRN PRN Reason: NASAL CONGESTION - Objective Vital Signs: Vital Signs Temperature 97.8 F 09/29/19 14:01 Pulse Rate 86 09/29/19 14:01 Respiratory Rate 20 09/29/19 14:01 Blood Pressure 114/49 L 09/29/19 14:01 O2 Sat by Pulse Oximetry (%) 95 09/29/19 09:00 Labs: CBC, BMP 09/25/19 08:10 09/25/19 08:10 Problem List - Problems (1) Cough Code(s): R05 - COUGH (2) Failure to thrive in adult Code(s): R62.7 - ADULT FAILURE TO THRIVE (3) HTN (hypertension) Code(s): I10 - ESSENTIAL (PRIMARY) HYPERTENSION (4) HLD (hyperlipidemia) Code(s): E78.5 - HYPERLIPIDEMIA, UNSPECIFIED (5) Peripheral neuropathic pain Code(s): M79.2 - NEURALGIA AND NEURITIS, UNSPECIFIED (6) Diabetes Code(s): E11.9 - TYPE 2 DIABETES 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
--- NOTE | 2019-09-30 10:02 | PN ---
Progress Note (short form) - Note Progress Note: OOB to chair. Comfortable on RA. Still with nasal congestion, cough with clear sputum. No acute events overnight. Intake & Output 09/27/19 09/28/19 09/29/19 09/30/19 23:59 23:59 23:59 23:59 Intake Total 1190 1300 800 250 Balance 1190 1300 800 250 Last Vital Signs Temp Pulse Resp BP Pulse Ox 98.7 F 87 20 154/62 95 09/30/19 06:00 09/30/19 06:00 09/30/19 06:00 09/30/19 06:00 09/29/19 21:00 Active Medications Acetaminophen (Tylenol -) 650 mg PO Q6H PRN PRN Reason: PAIN 1-5 Last Admin: 09/28/19 13:36 Dose: 650 mg Amlodipine Besylate (Norvasc -) 10 mg PO DAILY [facility] Last Admin: 09/29/19 11:07 Dose: 10 mg Aspirin (Asa -) 81 mg PO DAILY [facility] Last Admin: 09/29/19 11:06 Dose: 81 mg Fluticasone Propionate (Flonase -) 2 spray NS DAILY [facility] Last Admin: 09/29/19 11:17 Dose: 2 spray Guaifenesin (Robitussin -) 5 ml PO Q6H PRN PRN Reason: COUGH Last Admin: 09/29/19 22:24 Dose: 5 ml Heparin Sodium (Porcine) (Heparin -) 5,000 unit SQ BID [facility] Last Admin: 09/29/19 22:15 Dose: 5,000 unit Insulin Detemir (Levemir Vial) 20 units SQ HS [facility] Last Admin: 09/29/19 22:14 Dose: 20 units Levofloxacin (Levaquin -) 500 mg PO DAILY [facility] Last Admin: 09/29/19 11:06 Dose: 500 mg Losartan Potassium (Cozaar -) 25 mg PO DAILY [facility] Last Admin: 09/29/19 11:06 Dose: 25 mg Nystatin (Nystop Powder -) 1 applic TP BID [facility] Last Admin: 09/29/19 22:15 Dose: 1 applic Pramipexole Dihydrochloride (Mirapex -) 0.125 mg PO HS [facility] Last Admin: 09/29/19 22:14 Dose: 0.125 mg Pregabalin (Lyrica -) 25 mg PO DAILY [facility] Last Admin: 09/29/19 11:06 Dose: 25 mg Rosuvastatin Calcium (Crestor -) 10 mg PO HS [facility] Last Admin: 09/29/19 22:14 Dose: 10 mg Sodium Chloride ([place] Nasal [place] -) 2 spray NS TID PRN PRN Reason: NASAL CONGESTION Constitutional: Yes: No Distress, Mildly anxious Eyes: Yes: Conjunctiva Clear, EOM Intact HENT: Yes: Atraumatic, Normocephalic Neck: Yes: Supple, Trachea Midline Cardiovascular: Yes: Regular Rate and Rhythm Respiratory: Yes: CTA Bilaterally, Cough, On Nasal O2. No: Accessory Muscle Use , Rales, Rhonchi, SOB, SOB on Exertion, Stridor, Tachypnea, Wheezes ...Inspection: Yes: WNL ...Clubbing: No Gastrointestinal: Yes: Normal Bowel Sounds, Soft Renal/: Yes: WNL Musculoskeletal: Yes: WNL Extremities: Yes: WNL Edema: No Peripheral Pulses WNL: Yes Integumentary: Yes: WNL Neurological: Yes: WNL, Alert, Oriented ...Motor Strength: WNL Psychiatric: Yes: WNL, Alert, Oriented Labs: Laboratory Results - last 24 hr 09/29/19 16:11 POC Glucometer 153 Problem List - Problems (1) Cough Code(s): R05 - COUGH (2) Diabetes Code(s): E11.9 - TYPE 2 DIABETES 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 (3) Failure to thrive in adult Code(s): R62.7 - ADULT FAILURE TO THRIVE (4) HLD (hyperlipidemia) Code(s): E78.5 - HYPERLIPIDEMIA, UNSPECIFIED (5) HTN (hypertension) Code(s): I10 - ESSENTIAL (PRIMARY) HYPERTENSION (6) Peripheral neuropathic pain Code(s): M79.2 - NEURALGIA AND NEURITIS, UNSPECIFIED (7) Post-nasal drip Code(s): R09.82 - POSTNASAL DRIP Assessment/Plan IMP: Suspect resolving URI with subacute cough due to PND PLAN: Fluticasone nasal spray Nasal saline Noted Levaquin O2 as needed PFTs as an outpatient when stable No smoking counseled No Pulmonary contraindication for DC planning Dr Lewis Problem List - Problems (1) Cough Code(s): R05 - COUGH (2) Diabetes Code(s): E11.9 - TYPE 2 DIABETES 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 (3) Failure to thrive in adult Code(s): R62.7 - ADULT FAILURE TO THRIVE (4) HLD (hyperlipidemia) Code(s): E78.5 - HYPERLIPIDEMIA, UNSPECIFIED (5) HTN (hypertension) Code(s): I10 - ESSENTIAL (PRIMARY) HYPERTENSION (6) Peripheral neuropathic pain Code(s): M79.2 - NEURALGIA AND NEURITIS, UNSPECIFIED (7) Post-nasal drip Code(s): R09.82 - POSTNASAL DRIP
[2019-09-30] MEDS ORDERED: PT OWN MED DRAWER 7, Y5N ONE (10:26)
[2019-09-30] MEDS: amLODIPine BESYLATE 10 MG TABLET (FP) PO SCH (10:49)
[2019-09-30] MEDS: PREGABALIN 25 MG CAPSULE PO SCH (10:49)
[2019-09-30] MEDS: ASPIRIN 81 MG CHEWABLE TABLETS PO SCH (10:50)
[2019-09-30] MEDS: NYSTATIN POWDER 100,000 UNITS/GM - 15 GM TOPICAL POWDER TP SCH (10:50)
[2019-09-30] MEDS: LOSARTAN POTASSIUM 25 MG TABLET PO SCH (10:50)
[2019-09-30] MEDS: HEPARIN NA (PORCINE) 5,000 UNITS/ML 1ML VIAL SQ SCH (10:50)
[2019-09-30] MEDS: FLUTICASONE PROP 0.05% 16 GM NASAL SPRAY NS SCH (10:51)
[2019-09-30 13:35] VITALS: BP 152/58; PULSE 88; TEMP 98.8
[2019-09-30] MEDS: guaiFENesin 200 MG/10 ML 10 ML UNIT-DOSE CUPS PO PRN (14:20)
[2019-09-30] MEDS: ACETAMINOPHEN 325 MG TABLET (FP) PO PRN (14:20)
== END 2019-09-30 15:15 | DRG 641 ==
LOC: JER 14:57 → JERBED 18:15 → J6S 20:35
PROVIDERS: ADMIT Internal Medicine; ATTEND Internal Medicine
DX: R62.7 Adult failure to thrive (principal); J06.9 Acute upper respiratory infection, unspecified; I10 Essential (primary) hypertension; E78.5 Hyperlipidemia, unspecified; M79.2 Neuralgia and neuritis, unspecified; E11.9 Type 2 diabetes mellitus without complications
CPT/HCPCS: 36415; 71045-TC-FY; 71046-TC-FY; 80053; 81003; 82550; 82962; 83036; 84484; 85025; 87086; 87186; 93005; 93010; 97116-GP; 99284-25; J0131; J1644